=== PATIENT | male | born 1935 | race Caucasian/White ===

== ENCOUNTER 2016-11-16 11:11 | Inpatient (IN) ==
[2016-11-16] MEDS ORDERED: ASPIRIN 325 MG TABLET PO STA (12:08)
[2016-11-16] MEDS ORDERED: PANTOPRAZOLE 40 MG VIAL IV STA (12:08)
[2016-11-16] MEDS ORDERED: METOCLOPRAMIDE 10 MG/2 ML VIAL IV STA (12:08)
[2016-11-16] MEDS ORDERED: KETOROLAC 30 MG/1 ML VIAL IV STA (12:08)
--- NOTE | 2016-11-16 12:13 | Emergency Department Note ---
Arrival - Arrival Chief Complaint: Upper Respiratory Stated Complaint: Pain breathing and back ache ED Nursing Triage Note: c/o Having pain in the right side of the lower chest when he takes in a deep breath since last pm., denies having coughing, patient also states that the pain is worse if moves., states he could not lay on the right side last night, denies having SOB., denies having nausea., Mode of Arrival: Ambulatory Limitations: No Limitations Source: Patient Time Seen by Provider: 11/16/16 12:08 - History of Present Illness HPI Narrative: This 80-year-old white male presents with insidious onset of right-sided pleuritic type chest pain and right upper quadrant pain associated with radiation to the back. The patient denies any complaints of cough, shortness of breath, palpitations, chills, fever, wheeze, hemoptysis, nausea, vomiting, water brash, reflux, or heartburn. Of note the patient does have a distant history of DVT approximately 10 years ago but he fails to remember which extremity. Currently at rest in bed he is in no acute distress. Onset (ago): hour(s) (Patient presents 18 hours post onset of symptom) Allergies/Adverse Reactions: Allergies Allergy/AdvReac Type Severity Reaction Status Date / Time No Known Allergies Allergy Verified 11/16/16 11:21 Home Medications: Home Medications Medication Instructions Recorded Confirmed Type PARoxetine HCl [Paroxetine HCl] 20 mg PO DAILY 11/16/16 History Rosuvastatin Calcium [Rosuvastatin 10 mg PO DAILY 11/16/16 History Calcium] Review of System - Review of System 12 point system: reviewed and no additional remarkable complaints except as stated - Review of System Constitutional: Present: as per HPI Respiratory: Present: as per HPI Gastrointestinal: Present: as per HPI Medical,Surgical,& Family Hx - Social History Smoking Status: Never smoker Frequency of Alcohol Use: None Type of Drug Use: None Exam Physical Examination: GENERAL: Well developed, well nourished elderly white male in no acute distress. HEENT: Normocephalic. No trauma. Moist mucous membranes. EOMI. PERRLA. ENT NML NECK: Supple. No adenopathy. CARDIAC: Regular. No murmurs. Heart rate 74 CHEST: Clear to auscultation. No respiratory distress. O2 sat 96%. Left lower chest wall tender to palpation. ABDOMEN: Soft. Mild right upper quadrant tenderness. Tender right CVA. Active bowel sounds. EXTREMITIES: No trauma. Normal ROM. No pedal edema. No calf tenderness, negative Homans bilaterally. SKIN: No diaphoresis. No rash. NEURO: Alert. Neuro intact. No focal deficits. Vital Signs: Vital Signs Temperature 99.9 F H 11/16/16 11:56 Pulse Rate 74 11/16/16 11:56 Respiratory Rate 18 11/16/16 12:37 Blood Pressure 140/92 11/16/16 11:56 O2 Sat by Pulse Oximetry 98 11/16/16 11:55 Course - Reevaluation(s) Reevaluation #1: Discussed with patient need for hospitalization given his blood clot and necessity to find a source as well as associated infiltrate in the area of infarction. - Consultations Consultation #1: Discussed with the hospitalist service who will admit for further evaluation treatment. Results - Labs CBC & BMP: 11/16/16 12:36 11/16/16 12:36 Labs: I reviewed the laboratory and noted its normalcy excepting for the elevated d- dimer. - Impressions EKG: Sinus rhythm at 65 with normal VT interval and QRS duration. Normal ST segments. No acute injury pattern noted. - Diagnostic Findings Procedure: Chest x-ray: image reviewed by me, report reviewed by me (Bilateral platelike atelectasis), CT: image reviewed by me, report reviewed by me (CTA: Right lower lobe pulmonary emboli with evidence of infiltrate.), Ultrasound: image reviewed by me, report reviewed by me (Gallbladder: Single stone in the gallbladder.) Disposition Clinical Impression: Right sided PTE, Ysabel-infarct infiltrate Case discussed with: patient, patient's family Disposition: Still a Patient Condition: Guarded Time of Disposition: 14:23
--- NOTE | 2016-11-16 12:39 | XRay Report ---
Exam: XR chest 2V Date: 11/16/2016 12:08 PM Indication: Chest pain Comparison: 12/15/2009 Technical: PA lateral Findings: Platelike atelectatic change or infiltrates are present in both bases left greater than right which have developed when compared to the prior studies. ASVD is present. No pneumothorax. Mild weightbearing deformity in the mid thoracic spine. Heart is normal in size. Impression: 1. Bibasilar atelectatic change and infiltrates left greater than right. Some Estrellita B line suspected in the right base 2. Compression deformity in the thoracic spine PROCEDURE INTERPRETED AT [facility] DEPARTMENT OF RADIOLOGY Final Report Signed by: Dr. Cornelio Valdes
[2016-11-16 12:41] LABS: Basophils % 0.3 % (0.0-0.8); Eosinophils # 0.1 10*3/uL (0.0-0.87); Eosinophils % 0.9 % (0.00-10.9); Hematocrit 42.9 VOL% (42.0-52.0); Hemoglobin 14.3 GM/DL (14.0-18.0); Immature Granulocytes % 0.4 %; Immature Granulocytes Absolute 0.03 #; Lymphocytes # 1.5 10*3/uL (1.4-4.0); Lymphocytes % 19.9 % (21.2-54.2); Mean Corpuscular HGB Conc 33.3 GM/DL (32-36); Mean Corpuscular Hemoglobin 31 PG (27-34); Mean Corpuscular Volume 92.5 FL (87-102); Mean Platelet Volume 10.7 FL (9.6-12.0); Monocytes # 0.9 10*3/uL (0.11-0.8); Neutrophils % 66.5 % (38.7-73.9); Platelet Count 133 T/CUMM (130-400); Red Blood Count 4.64 MC/CUMM (3.8-5.5); Red Cell Distribution Width 13.6 % (9.3-17.3); White Blood Count 7.5 T/CUMM (4-12)
[2016-11-16] MEDS ORDERED: PANTOPRAZOLE 40 MG VIAL IV ONE (12:41)
[2016-11-16] MEDS ORDERED: METOCLOPRAMIDE 10 MG/2 ML VIAL ONE (12:41)
[2016-11-16] MEDS ORDERED: KETOROLAC 30 MG/1 ML VIAL ONE (12:41)
[2016-11-16] MEDS ORDERED: ASPIRIN 325 MG TABLET ONE (12:41)
--- NOTE | 2016-11-16 12:44 | EKG Report ---
Stationary ECG Study [facility] ER Test Date: 11/16/2016 12:42:35 PM Pat Name: NINI RAMACHANDRAN Department: Room: Gender: M [employer]: : 1935 Requested by: Oskar Nance Order Number: [id number] Reading MD: YANELY MOODY Intervals [place] Rate: 65 P: 44 TN: 138 QRS: 36 QRSD: 93 T: 64 QT: 409 QTc: 420 Interpretive Statements SINUS RHYTHM Electronically Signed On 11-18-16 11:17:21 CDT by YANELY MOODY [email or web address]
[2016-11-16 12:57] LABS: Apearance,Urine CLEAR (Clear); Bilirubin,Urine Negative (Negative); Blood, Urine Small mg/dL (Negative); Glucose,Urine (UA) Negative (Negative); Ketones,Urine 20 mg/dL (Negative); Mucus,Urine Occasional /LPF (Occasional); Nitrite,Urine Negative (Negative); Protein,Urine Negative; RBC,Urine 2 /HPF (0-4); Squamous Epithelial Cell,Urine Occasional /HPF (0-10); Urine Color Yellow (Yellow); Urine Specific Gravity 1.017 (1.001-1.035); WBC,Urine <1 /HPF (0-6)
[2016-11-16 13:01] LABS: INR 1.1; PT Patient Result 11.6 SECS; Partial Thromboplastin Time 30.8 SECS (0-40)
[2016-11-16 13:03] LABS: Barbiturates Screen,Urine Negative (Negative); Benzodiazepines Screen,Urine Negative (Negative); Cannabinoid Screen,Urine Negative (Negative); Opiate Screen,Urine Negative (Negative); Phencyclidine Screen,Urine Negative (Negative)
[2016-11-16 13:09] LABS: D-Dimer 7.1 MG/L FEU
[2016-11-16 13:22] LABS: Alanine Aminotransferase 14 U/L (16-61); Albumin 4.1 G/DL (3.4-5.0); Alkaline Phosphatase 43 U/L (45-117); Aspartate Amino Transferase 25 U/L (0-37); Blood Urea Nitrogen 13 MG/DL (7-18); Calcium 8.6 MG/DL (8.5-10.1); Glucose 89 MG/DL (74-106); Potassium 4.6 MMOL/L (3.5-5.1); Sodium 136 MMOL/L (136-145); Total Protein 7.8 G/DL (6.4-8.3); Troponin I Only 0.029 NG/ML (0.00-0.045)
--- NOTE | 2016-11-16 14:07 | CT Report ---
Exam: CT chest PE study Date: 11/16/2016 1:19 PM Indication: Atelectasis pleura pain Comparison: 04/10/2010 Technical: Images were obtained from the thoracic inlet through the lung bases with 80 cc of Omnipaque 350 with axial and coronal imaging available for review. Dose reduction was performed with decreasing kv and mA and automated exposure. 3-D MIP images were obtained Findings: The heart is mildly prominent. Minimal atherosclerotic plaque in the aorta.. The pulmonary outflow tract is patent. The examination reveals pulmonary thromboemboli involving the first and second order branches of the right pulmonary artery with underlying area of atelectatic change. The left pulmonary artery reveals no obvious pulmonary thromboemboli emboli in the left pulmonary artery. The component of atelectatic change or scarring in both lung bases and are superimposed infiltrates some dependent atelectatic changes are also present. No obvious effusions present. The mediastinum reveals a few small calcified nodes and small nodes in the right hilar region. And bony structures are intact. Cystic changes are present in the right kidney with a conglomeration of cysts measures up to 8.4 cm in the right kidney. Right nephrolithiasis also present. Smaller cysts are also present in the right kidney the left kidney is partially with no obvious cyst. The adrenal glands are intact liver and spleen are unremarkable. Stomach is incompletely distended gallbladder and pancreas reveal no acute findings. Impression: 1. Right-sided pulmonary thromboemboli involving the branch of the first and second order vessels. 2. Right nephrolithiasis with cystic changes of the right kidney 3. Underlying atelectatic change and infiltrates without obvious effusions. Critical test report called to Dr. Proctor at the time of dictation PROCEDURE INTERPRETED AT [facility] DEPARTMENT OF RADIOLOGY Final Report Signed by: Dr. Cornelio Valdes
--- NOTE | 2016-11-16 14:11 | Ultrasound Report ---
Exam: US gallbladder Date:11/16/2016 12:08 PM Comparison: None Indication: Right upper quadrant pain IMPORTANT MEASUREMENTS Liver Length: 18.2 centimeters. The hepatic and portal veins are otherwise patent. No focal mass Gallbladder Wall Thickness: 2.1 mm anterior wall. Cholelithiasis is present with single stone CBD: 3.3 mm Pancreas: No obvious abnormality noted. Pancreas is however mostly obscured Right kidney: 9.7 x 4.3 x 4.9 cm. There is a 2.7 x 2.9 x 2.5 cm cyst in the 8.5 x 6.3 x 7.9 cm cyst. Small calculus is also present. No obvious ascites. Impression: 1. Cholelithiasis 2. Cystic changes of the right kidney with right nephrolithiasis. The Ultrasound images were captured and stored. PROCEDURE INTERPRETED AT [facility] DEPARTMENT OF RADIOLOGY Final Report Signed by: Dr. Cornelio Valdes
[2016-11-16] MEDS ORDERED: ENOXAPARIN 100 MG/ML SYRINGE SUBCUT STA (14:14)
[2016-11-16] MEDS ORDERED: ENOXAPARIN 100 MG/ML SYRINGE SUBCUT ONE (14:19)
--- NOTE | 2016-11-16 15:57 | Hospitalist History & Physical ---
Assessment and Plan (1) Pulmonary emboli Status: Acute Assessment and plan: Admit to ICU for close monitoring. Cardiac/neuromonitoring. Strict bedrest. IVF hydration. Start anticoagulation. Daily labs (CBC/CMP/pt inr/ptt). Hold full strength ASA for now. Current Visit: Yes History of Present Illness Chief complaint: back pain History of present illness: Mr. Dominik Lynne is a 80 year old white male with a history of OH with stent and DVT that presented to the ED today for further evaluation of back pain. Pt. states that yesterday he began to experience severe pain in his right sided back and stomach around 2 or 3 pm. At the time, patient took a Tylenol arthritis but found no relief. Pt. rated the pain 10/10 on 0-10 scale. The patient went through the night and was unable to sleep and reported pain with inspiration. Pt. denies fever, cough, chills, nausea or vomiting, shortness of breath. In ED, pt was noted to have a 'right sided pulmonary thromboembolic involving the branch of the first and second order vessels'. Pt. will be admitted to the hospitalist service for further evaluation and treatment. Home Medications Medication Instructions Recorded Confirmed Type Aspirin EC Tab 325 mg PO BEDTIME 11/16/16 11/16/16 History Rosuvastatin Calcium [Rosuvastatin 10 mg PO QAM 11/16/16 11/16/16 History Calcium] Allergies Allergy/AdvReac Type Severity Reaction Status Date / Time No Known Allergies Allergy Verified 11/16/16 11:21 Medical,Surgical,& Family Hx - Medical History Cardio: History of: OH (one stent) - Social History Smoking Status: Never smoker Frequency of Alcohol Use: None Type of Drug Use: None Marital Status: Lives With:: Spouse Functional capacity: independent ambulation - Constitutional Constitutional: Absent: chills, fever(s) - EENT Eyes: Absent: blurry vision, loss of vision Nose, mouth and throat: Absent: headache(s) - Cardiovascular Cardiovascular: Absent: dyspnea on exertion, edema - Respiratory Respiratory: Absent: cough, dyspnea - Gastrointestinal Gastrointestinal: Absent: nausea, vomiting - Genitourinary Genitourinary: Present: other (slow stream) - Musculoskeletal Musculoskeletal: Present: back pain - Neurological Neurological: Absent: confusion, frequent falls Exam - Constitutional Vitals: Period Temp Pulse Resp BP Sys/Leiva Pulse Ox Last 24 Hr 99.9 F-99.9 F 74-74 18-18 140-140/92-92 96-98 Exam: General appearance: no acute distress, normal weight Head Head exam: Present: normal inspection, normocephalic Eye Eye exam: Present: EOMI Pupils: Present: BASIL - ENT ENT exam: Present: normal exam - Neck Neck exam: Present: normal inspection - Respiratory Respiratory exam: Present: clear to auscultation bilaterally. Absent: wheezes - Cardiovascular Cardiovascular exam: Present: regular rate and rhythm - GI/Abdominal GI/Abdominal exam: Present: normal bowel sounds, soft. Absent: tenderness - Extremities Exam Extremities exam: Present: normal capillary refill, full ROM. Absent: edema - Neurological Exam Neurological exam: Present: alert, oriented X3 - Psychiatric Psychiatric exam: Present: normal affect, normal mood - Skin Skin exam: Present: normal color, warm, dry - Head Head exam: Present: normal inspection Results - Labs CBC & BMP: 11/16/16 12:36 11/16/16 12:36 Lab Results: I have reviewed the past 24 hour labs
[2016-11-16] MEDS ORDERED: ZALEPLON 5 MG CAPSULE PO PRN (16:09)
[2016-11-16] MEDS ORDERED: ONDANSETRON 4 MG/2 ML VIAL IV PRN (16:09)
[2016-11-16] MEDS ORDERED: ACETAMINOPHEN 325 MG TABLET PO PRN (16:09)
[2016-11-16] MEDS ORDERED: MORPHINE 2 MG/1 ML SYRINGE IV PRN (16:09)
[2016-11-16] MEDS ORDERED: ENOXAPARIN 100 MG/ML SYRINGE SUBCUT SCH (16:30)
[2016-11-16] MEDS: SODIUM CHLORIDE 0.9% 1,000 ML IV SCH (17:04)
[2016-11-16] MEDS: ASPIRIN EC 325 MG TABLET PO SCH (21:22)
[2016-11-17 04:48] LABS: Basophils % 0.3 % (0.0-0.8); Eosinophils # 0.1 10*3/uL (0.0-0.87); Hematocrit 38.5 VOL% (42.0-52.0); Hemoglobin 12.8 GM/DL (14.0-18.0); Immature Granulocytes % 0.2 %; Immature Granulocytes Absolute 0.01 #; Lymphocytes # 1.5 10*3/uL (1.4-4.0); Lymphocytes % 23.6 % (21.2-54.2); Mean Corpuscular HGB Conc 33.2 GM/DL (32-36); Mean Corpuscular Hemoglobin 31 PG (27-34); Mean Corpuscular Volume 91.7 FL (87-102); Mean Platelet Volume 10.5 FL (9.6-12.0); Monocytes # 0.6 10*3/uL (0.11-0.8); Monocytes % 9.8 % (1.7-12.7); Neutrophils % 64.1 % (38.7-73.9); Platelet Count 105 T/CUMM (130-400); Red Cell Distribution Width 13.4 % (9.3-17.3); White Blood Count 6.2 T/CUMM (4-12)
[2016-11-17 05:24] LABS: INR 1.2; PT Patient Result 12.4 SECS
[2016-11-17 05:27] LABS: Calcium 7.9 MG/DL (8.5-10.1); Magnesium 2.3 MG/DL (1.8-2.4); Osmolality,Calculated 275.7 MOS/KG (273-304); Troponin I Only 0.035 NG/ML (0.00-0.045)
[2016-11-17] MEDS: SODIUM CHLORIDE 0.9% 1,000 ML IV SCH (06:27)
--- NOTE | 2016-11-17 08:02 | Hospitalist Progress Note ---
Assessment and Plan - Time spent with patient Time spent with patient: Less than 30 minutes (1) Pulmonary emboli Status: Acute Assessment and plan: Patient was admitted yesterday for right-sided pulmonary thromboemboli. He has been placed on anticoagulation. He is otherwise hemodynamically stable and will transfer to the floor today to continue anticoagulation and increase his activity. He is noted to have cholelithiasis on ultrasound however is having no symptoms consistent with gallbladder disease. Current Visit: Yes Hospitalist: Subjective Interval history: Chart is been reviewed and patient examined. Mr. Lehman denies any shortness of breath or chest pain. He does have some residual back pain. He is tolerating his diet. He has no other complaints. Exam - Constitutional Vitals: Period Temp Pulse Resp BP Sys/Leiva Pulse Ox Last 24 Hr 97.8 F-99.9 F 54-74 15-22 115-149/52-108 95-99 General appearance: no acute distress - Head Head exam: Present: normocephalic, atraumatic - Eye Eye exam: Present: EOMI Pupils: Present: BASIL - ENT ENT exam: Present: normal exam - Neck Neck exam: Present: normal inspection - Respiratory Respiratory exam: Present: clear to auscultation bilaterally. Absent: rales, rhonchi, wheezes - Cardiovascular Cardiovascular exam: Present: regular rate and rhythm. Absent: tachycardia - GI/Abdominal GI/Abdominal exam: Present: normal bowel sounds, soft. Absent: tenderness, rebound - Extremities Exam Extremities exam: Absent: calf tenderness, edema - Neurological Exam Neurological exam: Present: alert, oriented X3, CN II-XII intact. Absent: motor sensory deficit - Psychiatric Psychiatric exam: Present: normal affect, normal mood. Absent: agitated, anxious - Skin Skin exam: Present: warm, dry. Absent: erythema, rash Results - Labs CBC & BMP: 11/17/16 04:43 11/17/16 04:43 Lab Results: I have reviewed the past 24 hour labs - Diagnostic Findings Procedure: CT - chest: report reviewed by me Quality Measures - VTE Contraindication to Pharmacological VTE Prophylaxis: Already on Theraputic Agent , No Prophylaxis Needed
[2016-11-17] MEDS: ROSUVASTATIN 10 MG TABLET PO SCH (09:32)
[2016-11-17] MEDS: PANTOPRAZOLE 40 MG TABLET PO SCH (09:33)
[2016-11-17] MEDS: RIVAROXABAN 15 MG TABLET PO SCH (16:34)
[2016-11-17] MEDS: ASPIRIN EC 325 MG TABLET PO SCH (21:45)
[2016-11-18 05:23] LABS: Basophils % 0.4 % (0.0-0.8); Eosinophils # 0.1 10*3/uL (0.0-0.87); Eosinophils % 1.8 % (0.00-10.9); Hematocrit 37.6 VOL% (42.0-52.0); Hemoglobin 12.3 GM/DL (14.0-18.0); Immature Granulocytes % 0.2 %; Immature Granulocytes Absolute 0.01 #; Lymphocytes # 1.4 10*3/uL (1.4-4.0); Lymphocytes % 23.9 % (21.2-54.2); Mean Corpuscular HGB Conc 32.7 GM/DL (32-36); Mean Corpuscular Hemoglobin 30 PG (27-34); Mean Corpuscular Volume 92.6 FL (87-102); Monocytes # 0.6 10*3/uL (0.11-0.8); Monocytes % 10.6 % (1.7-12.7); Neutrophils # 3.6 10*3/uL (1.4-7.4); Neutrophils % 63.1 % (38.7-73.9); Platelet Count 109 T/CUMM (130-400); Red Blood Count 4.06 MC/CUMM (3.8-5.5); Red Cell Distribution Width 13.3 % (9.3-17.3); White Blood Count 5.7 T/CUMM (4-12)
[2016-11-18 05:58] LABS: Albumin 2.8 G/DL (3.4-5.0); Calcium 7.9 MG/DL (8.5-10.1); Osmolality,Calculated 275.7 MOS/KG (273-304); Potassium 4.4 MMOL/L (3.5-5.1); Total Protein 5.8 G/DL (6.4-8.3)
[2016-11-18] MEDS: PANTOPRAZOLE 40 MG TABLET PO SCH (08:46)
[2016-11-18] MEDS: ROSUVASTATIN 10 MG TABLET PO SCH (08:46)
[2016-11-18] MEDS: RIVAROXABAN 15 MG TABLET PO SCH ×2 (08:46→18:06)
--- NOTE | 2016-11-18 16:19 | Hospitalist Progress Note ---
Assessment and Plan (1) Pulmonary emboli Status: Acute Assessment and plan: On xarelto Chest pain is improving Current Visit: Yes Hospitalist: Subjective Interval history: No acute events overnight. Moved out of the ICU yesterday. Ambulating some around the halls. denies chest pain. Plan for discharge tomorrow. Exam - Constitutional Vitals: Period Temp Pulse Resp BP Sys/Leiva Pulse Ox Last 24 Hr 97.4 F-99.8 F 47-62 16-20 99-122/53-61 92-95 General appearance: normal weight - Head Head exam: Present: normocephalic, atraumatic - Eye Eye exam: Present: EOMI Pupils: Present: BASIL - ENT ENT exam: Present: normal exam - Neck Neck exam: Present: normal inspection - Respiratory Respiratory exam: Present: clear to auscultation bilaterally. Absent: rhonchi, wheezes - Cardiovascular Cardiovascular exam: Present: regular rate and rhythm - GI/Abdominal GI/Abdominal exam: Present: normal bowel sounds, soft. Absent: tenderness, rebound - Extremities Exam Extremities exam: Present: normal inspection - Back Exam Back exam: Present: normal inspection - Neurological Exam Neurological exam: Present: alert, oriented X3 - Psychiatric Psychiatric exam: Present: normal affect, normal mood - Skin Skin exam: Present: warm, intact Results - Labs CBC & BMP: 11/18/16 04:26 11/18/16 04:26 Quality Measures - VTE Contraindication to Pharmacological VTE Prophylaxis: Already on Theraputic Agent , No Prophylaxis Needed
[2016-11-18] MEDS ORDERED: SENNA 8.6 MG TABLET PO PRN (16:20)
[2016-11-18] MEDS: ASPIRIN EC 325 MG TABLET PO SCH (21:12)
[2016-11-19 07:51] VITALS: BP 131/70
[2016-11-19] MEDS: PANTOPRAZOLE 40 MG TABLET PO SCH (08:51)
[2016-11-19] MEDS: ROSUVASTATIN 10 MG TABLET PO SCH (08:51)
[2016-11-19] MEDS: RIVAROXABAN 15 MG TABLET PO SCH (08:51)
--- NOTE | 2016-11-19 09:41 | Discharge Summary ---
Hospital Course - Hospital Course Hospital Course: Mr Lehman w/ significant PMHx DVT, ND w/stent; presented to the ED on 11/16/16 for further evaluation of right sided lower chest pain with exacerbation with deep breathing and radiation to back. In ED: CXR: bilateral atelectasis, Estrellita B line suspected right base. CTA: right lower lobe pulmonary emboli with evidence of infiltrate. US: gallbladder with single stone, small right kidney nephrolithiasis. LABS: D-Dimer 7.1. Hospital Medicine consulted and admitted patient for right sided pulmonary thromboemboli to ICU for close monitoring, started IV hydration, anticoagulation therapy, bedrest, and daily labs. On 11/17 patient re-evaluated and noted to be stable and improving without any new events, without any shortness of breath or chest pain and was transferred to the floor with increased activity and started on Xarelto. Today 11/19/26 patient is stable, tolerating ambulation, and has no new acute events and is ready for discharge. He will be discharged on Xarelto therapy. He will need to follow up with primary care physician. Further recommendations with discharge planning to follow per Dr Gomez. Diagnosis - Discharge Diagnosis (1) Pulmonary emboli Status: Acute Specialty Discharge - Follow Up or Referrals Follow up with: Erica Cervantes [REFERRING DOCTOR/PRACTITIONER] - 2 Weeks (hosptial follow-up for PE) Discharge Plan - Discharge Data Disposition: Disch To Home/Self Care Condition at Discharge: Stable Discharge Diet: advance to your usual diet Activity: increase activity as tolerated Hygiene: no restrictions Weight Bearing at Discharge: weight bear as tolerated Driving: no restrictions Contact your physician if you experience:: fever over 101, Shortness of breath - Discharge Medications New Rivaroxaban [Xarelto] 20 mg PO DAILY W/BREAKFAST #30 tablet Continue Rosuvastatin Calcium 10 mg PO QAM Aspirin EC Tab 325 mg PO BEDTIME - Follow Up or Referral Follow Up: Erica Cervantes [REFERRING DOCTOR/PRACTITIONER] - 2 Weeks (hosptial follow-up for PE) - Forms/Instructions Exam - Constitutional Vitals: Period Temp Pulse Resp BP Sys/Leiva Pulse Ox Last 24 Hr 97.6 F-100.5 F 50-86 16-20 122-141/58-80 90-97 General appearance: normal weight - Head Head exam: Present: normocephalic, atraumatic - Eye Eye exam: Present: EOMI Pupils: Present: BASIL - ENT ENT exam: Present: normal exam - Neck Neck exam: Present: normal inspection. Absent: tenderness - Respiratory Respiratory exam: Present: clear to auscultation bilaterally. Absent: rhonchi, wheezes - Cardiovascular Cardiovascular exam: Present: regular rate and rhythm - GI/Abdominal GI/Abdominal exam: Present: normal bowel sounds, soft. Absent: tenderness, rebound - Extremities Exam Extremities exam: Present: normal inspection - Back Exam Back exam: Present: normal inspection - Neurological Exam Neurological exam: Present: alert, oriented X3 - Psychiatric Psychiatric exam: Present: normal affect, normal mood - Skin Skin exam: Present: warm, intact Discharge Results Procedures and tests throughout hospitalization: Pending Orders 11/16/16 12:31 Blood Culture Stat Labs on day of discharge: Preliminary micro results at discharge 11/16/16 12:31 Blood Culture - Preliminary Blood No growth at 1 day 11/16/16 12:36 Blood Culture - Preliminary Blood No growth at 1 day DS: Provider Date of admission: 11/16/16 14:41 Primary care physician: . No PCP Attending physician on admission: Wilmer Ferreira MD Discharging clinician: Tamia Gomez MD
== END 2016-11-19 11:08 | disposition home or self-care (01) | DRG 176 ==
LOC: N.ED 11:11 → N.CC 14:41 → SUATTDRO 14:41 → N.CC 15:40 → N.TELES 11-17 22:37
PROVIDERS: ADMIT Internal Medicine; ATTEND Internal Medicine